=== PATIENT | male | born 1960 | race Caucasian/White ===

== ENCOUNTER 2019-09-30 16:35 | Observation (INO) | payer OTHER ==
[~2019-09-30] VITALS: Ht 177.8 cm; Wt 97.4 kg
[~2019-09-30 16:35] MED LIST: BACTRIM DS 8001 TAB PO; FLOMAX 0.40.4 MG/CAP PO; MICROZIDE12.5 MG PO; NO HOME MEDICATIONS; NORCO 325 MG-51 TAB PO; ULTRAM 50MG TAB50 MG PO; ZOFRAN ODT8 MG PO
[2019-09-30 17:07] LABS: ALANINE AMINOTRANSFERASE 25 U/L (4-49); ALBUMIN 4.4 gm/dL (3.5-5.0); ALKALINE PHOSPHATASE 70 U/L (50-136); ANION GAP 11 mmol/L (7-16); AST,SGOT 34 U/L (15-37); BILIRUBIN,TOTAL 1.9 mg/dL (0.0-1.0); BLOOD UREA NITROGEN 24 mg/dL (9-20); CALCIUM 9.9 mg/dL (8.4-10.2); CARBON DIOXIDE 25 mmol/L (22-30); CHLORIDE 102 mmol/L (98-107); CREATININE, serum 1.69 (0.66-1.25); GLUCOSE 122 mg/dL (74-106); SODIUM 137 mmol/L (137-145); TOTAL PROTEIN 7.9 gm/dL (6.4-8.2)
[2019-09-30 17:08] LABS: ALCOHOL(ethanol),MEDICAL < 10 mg/dL
[2019-09-30 17:23] LABS: PROLACTIN 36.9 ng/mL (3.7-17.9)
[2019-09-30 17:24] LABS: BASO # 0.1 (0.0-0.2); BASO % 0.7 % (0.0-2.0); EOS # 0.2 (0.0-0.7); EOS % 2.6 % (0-4.0); GRAN % 56.7 % (42.2-75.2); LYMPH # 2.5 (1.2-3.4); LYMPH % 28.7 % (20.0-51.0); MEAN CELL VOLUME 98 fl (80.0-100.0); MEAN CORPUSCULAR HGB CONC 34 g/dl (33.0-37.0); MEAN PLATELET VOLUME 9.7 fl (7.4-10.4); MONO # 0.9 (0.1-0.6); MONO % 10.2 % (1.7-9.3); PLATELET COUNT 292 K/mm3 (130-400); RED BLOOD COUNT 5.51 M/mm3 (4.20-5.60)
[2019-09-30 17:25] LABS: TROPONIN-I < 0.012 ng/mL (0.000-0.035)
[2019-09-30 17:29] LABS: HEMATOCRIT 53.7 % (42.0-52.0); HEMOGLOBIN 18.2 g/dl (13.5-18.0); MEAN CORPUSCULAR HEMOGLOBIN 33 pg (27.0-31.0)
[2019-09-30 17:38] LABS: PROTHROMBIN TIME 11.7 SECONDS (9.7-12.8)
[2019-09-30 19:29] LABS: COLLECTION METHOD CLEAN CATCH
[2019-09-30 19:43] LABS: MUCOUS Present /lpf; PH 5 (5-8); SQUAMOUS EPITHELIAL None Seen /hpf; URINE APPEARANCE Clear; URINE BACTERIA None Seen /hpf; URINE BILIRUBIN Negative (NEGATIVE); URINE BLOOD 1+ (NEGATIVE); URINE COLOR Yellow; URINE GLUCOSE Negative (NEGATIVE); URINE KETONE Negative (NEGATIVE); URINE LEUKOCYTE ESTERASE Negative (NEGATIVE); URINE NITRATE Negative (NEGATIVE); URINE PROTEIN(semi-quant) Negative (NEGATIVE); URINE UROBILINOGEN Negative (NEGATIVE)
[2019-09-30 21:47] VITALS: BP 144/80; PULSE 72; TEMP 98
--- NOTE | 2019-09-30 22:00 | NUR ---
Received patient via stretcher from ER. Patient is alert and oriented. With IV on left AC with NS at 125ml/hr. Denies pain. He is aware that he had a sudden confusion awhile ago but states he is back in his normal state now. Assesment and med rec done. Patient states he takes medicine for hypertension but cannot remember the name. This nurse asked him if his daughter can check it in the house and text him once she got it. He is ambulatory and independent. Lungs are clear. Call light within reach.
--- NOTE | 2019-09-30 23:25 | NUR ---
Informed patient about the medicines that I will give tonight including the Lovenox. Explained to him why it was ordered and why we are giving it. He refuses to have an injection in his tummy and thinks that he doesn't need the Lovenox. He states that he is ambulatory and he can walk in the hallway. He states, "It doesn't make sense. I'm only here overnight. I can walk and go up. Why would I need something for blood clots." Despite the explanation, this nurse told him that we'll inform the hospitalist about it. This nurse called airport operations duty manager hospitalist, Pippa, to inform her that the patient refuses the Lovenox and she said to just hold it for tonight and they will just discuss that in the morning. Informed patient about what the hospitalist said.
[2019-09-30] MEDS ORDERED: PRINIVIL5 MG PO (23:38)
[2019-10-01 00:36] VITALS: BP 141/65; PULSE 65; TEMP 98.4
[2019-10-01 05:06] VITALS: BP 128/64; PULSE 63; TEMP 98.3
[2019-10-01 07:07] LABS: BASO # 0.1 (0.0-0.2); BASO % 0.7 % (0.0-2.0); EOS # 0.2 (0.0-0.7); EOS % 3.1 % (0-4.0); GRAN # 4.6 (1.4-6.5); HEMATOCRIT 48.7 % (42.0-52.0); HEMOGLOBIN 16.4 g/dl (13.5-18.0); LYMPH # 1.6 (1.2-3.4); LYMPH % 22.4 % (20.0-51.0); MEAN CELL VOLUME 99 fl (80.0-100.0); MEAN CORPUSCULAR HEMOGLOBIN 33 pg (27.0-31.0); MEAN CORPUSCULAR HGB CONC 34 g/dl (33.0-37.0); MEAN PLATELET VOLUME 9.6 fl (7.4-10.4); MONO # 0.7 (0.1-0.6); MONO % 9.1 % (1.7-9.3); PLATELET COUNT 241 K/mm3 (130-400); RED BLOOD COUNT 4.94 M/mm3 (4.20-5.60); REDCELL DISTRIBUTION WIDTH-CV 13.2 % (11.5-14.5)
--- NOTE | 2019-10-01 07:24 | NUR ---
Lying in bed with eyes open. Patient voices frustration that he only got 20 minutes of sleep last night and he did not want to stay and wants to be discharged by this afternoon. Explained that we will be able to get more answers after he has his MRI today and the provider comes to see him. Patient denies pain. Neuro checks within normal limits. Patient declines needs at this time.
--- NOTE | 2019-10-01 07:25 | NUR ---
Endorsed patient to [facility]. Patient has been alert and oriented the whole shift. He denies pain. During shift change he verbalized that he was just grumpy since he wasn't able to sleep as people would go inside his room and check on him. Instructed patient to be NPO for his MRI today. He states that he wanna go home this afternoon.
[2019-10-01 07:30] VITALS: BP 143/72; PULSE 66; TEMP 98.1
[2019-10-01 07:32] LABS: CALCIUM 8.5 mg/dL (8.4-10.2); CREATININE, serum 1.43 (0.66-1.25); POTASSIUM 3.8 mmol/L (3.4-5.0)
--- NOTE | 2019-10-01 11:00 | NUR ---
Patient to MRI via wheel chair.
[2019-10-01 12:00] VITALS: BP 166/89; PULSE 68; TEMP 97.7
--- NOTE | 2019-10-01 12:06 | NUR ---
Patient back to room from MRI.
[2019-10-01] MEDS ORDERED: ASPIRIN 81M81 MG/TA2 PO (12:34)
[2019-10-01] MEDS ORDERED: PRINZIDE 12.5 M1 TA1 PO (12:47)
[2019-10-01] MEDS ORDERED: TRUVADA PO (12:47)
[2019-10-01] MEDS ORDERED: REVATIO20 MG PO (12:48)
[2019-10-01] MEDS ORDERED: DEPO-TESTOS200 MG/M1 IM (12:48)
--- NOTE | 2019-10-01 14:37 | NUR ---
FILIBERTO completed intake with patient on 10/01/2019. Patient currently resides in [place], [place] with daughter who is a minor. Patient states that he does not utilize any DME, nor does he need any assistance with ADL's. His PCP is Dr. Mcneill. Patient states he obtains his medication from [facility], and states that he can afford his medication, Patient states that he does not have a DPOA-HC and does not wish to appoint anyone at this time. Patient provides that he will be going back home up his discharge and does not have any questions or concerns in regards to his discharge at this time. Patient was packing up items to discharge during intake to go home. No addiontal needs.
--- NOTE | 2019-10-01 14:50 | NUR ---
Reviewed discharge instructions with the patient. Patient denies questions. Patient signs all discharge instructions. Patient leaves ambulatory with this nurse as hiw ride is here to pick him up. Denies additional needs.
== END 2019-10-01 14:50 | disposition home or self-care (01) ==
LOC: COL.ER 16:35 → SURG 18:26
PROVIDERS: Emergency Medicine; Nurse Practitioner Primary Care; ADMIT Internal Medicine
DX: G45.4 Transient global amnesia (principal); I10 Essential (primary) hypertension; E86.0 Dehydration
CPT/HCPCS: A9585; G0378; J7030

== ENCOUNTER 2021-05-19 04:22 | Emergency (ER) | payer SELFPAY ==
[~2021-05-19 04:22] MED LIST changes: +ASPIRIN 81M81 MG/TA2 PO; +DEPO-TESTOS200 MG/M1 IM; +PRINIVIL5 MG PO; +PRINZIDE 12.5 M1 TA1 PO; +REVATIO20 MG PO; +TRUVADA PO
[2021-05-19 04:48] VITALS: TEMP 97.8
[2021-05-19 06:37] LABS: COLLECTION METHOD CLEAN CATCH
[2021-05-19] MEDS ORDERED: NORCO 325 MG-51 TAB PO (06:39)
[2021-05-19] MEDS ORDERED: LEVAQUIN 5500 MG/TA1 PO (06:44)
[2021-05-19 06:45] LABS: MUCOUS Present (NOT PRESENT); PH 5 (5-8); SQUAMOUS EPITHELIAL 0-2 /hpf (0-10); URINE APPEARANCE Clear (CLEAR/HAZY); URINE BACTERIA None Seen /hpf (NONE SEEN); URINE BILIRUBIN Negative (NEGATIVE); URINE BLOOD Negative (NEGATIVE); URINE COLOR Yellow (YELLOW); URINE GLUCOSE Negative (NEGATIVE); URINE KETONE Negative (NEGATIVE); URINE LEUKOCYTE ESTERASE Negative (NEGATIVE); URINE NITRATE Negative (NEGATIVE); URINE PROTEIN(semi-quant) Negative (NEGATIVE); URINE RBC 0-2 /hpf (0-2); URINE UROBILINOGEN Negative (NEGATIVE)
[2021-05-19 07:02] VITALS: BP 155/94; PULSE 80
[2021-05-20] MEDS ORDERED: DOXYCYCLINE 10100 MG PO (16:36)
[2021-05-20] MEDS ORDERED: MOBIC15 MG PO (16:36)
== END 2021-05-19 07:09 | disposition home or self-care (01) ==
LOC: COL.ER 04:22
PROVIDERS: Emergency Medicine
DX: N50.812 Left testicular pain (principal); Z79.1 Long term (current) use of non-steroidal anti-inflammatories (NSAID)
CPT/HCPCS: J0696; J1170; J7030

== ENCOUNTER 2021-05-20 13:44 | Emergency (ER) | payer SELFPAY ==
[~2021-05-20] VITALS: Ht 177.8 cm; Wt 92.7 kg
[~2021-05-20 13:44] MED LIST changes: +LEVAQUIN 5500 MG/TA1 PO
[2021-05-20 14:07] VITALS: TEMP 98
[2021-05-20 15:01] LABS: BASO # 0.1 K/mm3 (0.0-0.2); BASO % 0.4 % (0.0-2.0); EOS # 0.3 K/mm3 (0.0-0.7); EOS % 2.3 % (0.0-4.0); GRAN % 69.3 % (42.2-75.2); HEMATOCRIT 46.2 % (42.0-52.0); HEMOGLOBIN 16.1 g/dl (13.5-18.0); LYMPH # 2.1 K/mm3 (1.2-3.4); LYMPH % 17.8 % (20.0-51.0); MEAN CELL VOLUME 96 fl (80.0-100.0); MEAN CORPUSCULAR HEMOGLOBIN 34 pg (27-31); MEAN CORPUSCULAR HGB CONC 35 g/dl (33.0-37.0); MEAN PLATELET VOLUME 9.1 fl (7.4-10.4); MONO # 1.1 K/mm3 (0.1-0.6); MONO % 9.3 % (1.7-9.3); PLATELET COUNT 265 K/mm3 (130-400); REDCELL DISTRIBUTION WIDTH-CV 14.3 % (11.5-14.5)
[2021-05-20 15:08] LABS: COLLECTION METHOD CLEAN CATCH
[2021-05-20 15:14] LABS: ALBUMIN 3.4 gm/dL (3.4-4.8); BILIRUBIN,TOTAL 1.9 mg/dL (0.2-1.2); CREATININE, serum 1.47 mg/dL (0.72-1.25); POTASSIUM 4.2 mmol/L (3.5-4.5); TOTAL PROTEIN 7.4 gm/dL (6.2-8.1)
[2021-05-20 15:14] LABS: MUCOUS Present (NOT PRESENT); PH 5 (5-8); SQUAMOUS EPITHELIAL None Seen /hpf (0-10); URINE APPEARANCE Clear (CLEAR/HAZY); URINE BACTERIA None Seen /hpf (NONE SEEN); URINE BILIRUBIN Negative (NEGATIVE); URINE BLOOD 1+ (NEGATIVE); URINE COLOR Yellow (YELLOW); URINE GLUCOSE Negative (NEGATIVE); URINE KETONE Negative (NEGATIVE); URINE LEUKOCYTE ESTERASE Negative (NEGATIVE); URINE NITRATE Negative (NEGATIVE); URINE PROTEIN(semi-quant) Negative (NEGATIVE); URINE UROBILINOGEN Negative (NEGATIVE)
[2021-05-20] MEDS ORDERED: DOXYCYCLINE 10100 MG PO (16:36)
[2021-05-20] MEDS ORDERED: MOBIC15 MG PO (16:36)
[2021-05-20 16:58] VITALS: BP 147/93; PULSE 81
== END 2021-05-20 16:59 | disposition home or self-care (01) ==
LOC: COL.ER 13:44
PROVIDERS: Physician Assistant
DX: N45.3 Epididymo-orchitis (principal); N43.3 Hydrocele, unspecified; I86.1 Scrotal varices
CPT/HCPCS: Q9967

== ENCOUNTER 2023-04-16 15:57 | Emergency (ER) | payer SELFPAY ==
[~2023-04-16] VITALS: Ht 177.8 cm; Wt 97.7 kg
[~2023-04-16 15:57] MED LIST changes: +DOXYCYCLINE 10100 MG PO; +MOBIC15 MG PO
[2023-04-16 16:01] VITALS: TEMP 98.3
[2023-04-16] MEDS ORDERED: ROXICODONE 55 MG/TAB PO (16:10)
[2023-04-16 16:19] LABS: BASO # 0.1 K/mm3 (0.0-0.2); BASO % 0.9 % (0.0-2.0); EOS # 0.2 K/mm3 (0.0-0.7); EOS % 3.1 % (0.0-4.0); GRAN # 5.1 K/mm3 (1.4-6.5); GRAN % 66.3 % (42.2-75.2); HEMATOCRIT 45.3 % (42.0-52.0); HEMOGLOBIN 15.6 g/dl (13.5-18.0); LYMPH # 1.5 K/mm3 (1.2-3.4); LYMPH % 19.9 % (20.0-51.0); MEAN CELL VOLUME 97 fl (80.0-100.0); MEAN CORPUSCULAR HEMOGLOBIN 33 pg (27-31); MEAN CORPUSCULAR HGB CONC 34 g/dl (33.0-37.0); MEAN PLATELET VOLUME 9.5 fl (7.4-10.4); MONO # 0.7 K/mm3 (0.1-0.6); PLATELET COUNT 300 K/mm3 (130-400); RED BLOOD COUNT 4.69 M/mm3 (4.20-5.60); REDCELL DISTRIBUTION WIDTH-CV 12.9 % (11.5-14.5)
[2023-04-16 16:26] LABS: INR 1.2 (0.8-3.0); PROTHROMBIN TIME 12.8 SECONDS (9.7-12.8)
[2023-04-16 16:54] LABS: ALBUMIN 3.4 gm/dL (3.4-4.8); BILIRUBIN,TOTAL 0.9 mg/dL (0.2-1.2); CREATININE, serum 1.64 mg/dL (0.72-1.25); POTASSIUM 3.9 mmol/L (3.5-4.5)
[2023-04-16 16:59] LABS: TROPONIN-I 0.012 ng/mL (0.00-0.033)
[2023-04-16] MEDS ORDERED: NS 100 ML IV SCH (17:12)
[2023-04-16] MEDS ORDERED: Iohexol 300 - 100 ML VIAL IV ONE (17:14)
[2023-04-16] MEDS ORDERED: NS 1,000 ML IV ONE (17:15)
[2023-04-16 18:22] VITALS: BP 150/90; PULSE 77
[2023-04-18] MEDS ORDERED: PROAIR HFA0.09 MG/AC IH (08:29)
== END 2023-04-16 18:32 | disposition home or self-care (01) ==
LOC: COL.ER 15:57
PROVIDERS: Emergency Medicine
DX: C80.1 Malignant (primary) neoplasm, unspecified (principal); C78.7 Secondary malignant neoplasm of liver and intrahepatic bile duct; R74.01 Elevation of levels of liver transaminase levels
CPT/HCPCS: J7030; Q9967

== ENCOUNTER → 2023-04-18 | Outpatient (CLI) | payer OTHER ==
[2023-04-18] VITALS (15 sets, daily range): BP systolic 144–182; BP diastolic 79–128; PULSE 64–83; TEMP 97.7
[~2023-04-18] VITALS: Ht 177.8 cm; Wt 99.1 kg
[~2023-04-18] MED LIST changes: +Midazolam 2 MG/2 ML VIAL IV SCH; +PROAIR HFA0.09 MG/AC IH; +PROTONIX20 MG PO; +ROXICODONE 55 MG/TAB PO; +fentaNYL 50 MCG/ML 2 ML VIAL IV SCH
--- NOTE | 2023-04-18 08:55 | NUR ---
Pt to ultrasound per wheelchair. Pt up and onto table in supine position. Monitors applied.
--- NOTE | 2023-04-18 09:08 | NUR ---
Dr Arreola into room and talks with pt.
--- NOTE | 2023-04-18 09:13 | NUR ---
Specimens obtained and placed in formalin by Dr Arreola. Specimen labeled.
--- NOTE | 2023-04-18 09:50 | NUR ---
Dr Arreola informed of pain. Orders received. See MAR.
--- NOTE | 2023-04-18 10:10 | NUR ---
Dr Arreola into talk with pt. Pt reports pain continues to be high. Orders received.
--- NOTE | 2023-04-18 10:54 | NUR ---
Informed pt that Dr Arreola states he has nothing to report to Dr Alvarado. States that pt can inform him that the procedure went well. Pain medication given. See MAR
--- NOTE | 2023-04-18 11:10 | NUR ---
Pt given muffin and juice to eat. Pt talking on phone continuously.
--- NOTE | 2023-04-18 11:45 | NUR ---
Talked with Dr Arreola regarding pts continued pain. Ordered [place] 5/325 x2 tabs to be given.
--- NOTE | 2023-04-18 12:05 | NUR ---
Pt dressed and moving slowly. Pain continues at 5/10. Pt out to car per wheelchair. Pt up and into car with standby assistance.
== END ==
LOC: COL.RAD 07:37
DX: C78.7 Secondary malignant neoplasm of liver and intrahepatic bile duct (principal); C80.1 Malignant (primary) neoplasm, unspecified
CPT/HCPCS: J2250; J3010

== ENCOUNTER 2023-05-01 08:24 | Day surgery (SDC) | payer OTHER ==
[~2023-05-01] VITALS: Ht 177.8 cm; Wt 95.0 kg
[~2023-05-01 08:24] MED LIST changes: +LR 1,000 ML IV SCH; -Midazolam 2 MG/2 ML VIAL IV SCH; -PROTONIX20 MG PO; -fentaNYL 50 MCG/ML 2 ML VIAL IV SCH
[2023-05-01] MEDS ORDERED: PROTONIX20 MG PO (09:04)
[2023-05-01 09:44] VITALS: BP 154/85; PULSE 104; TEMP 98.2
[2023-05-01] MEDS ORDERED: Topical Skin Adhesive 1 EACH (1 ML) TOP ONE (10:30)
[2023-05-01] MEDS ORDERED: Ondansetron 4 MG/2 ML VIAL IV PRN ×2 (11:15→12:15)
[2023-05-01 12:00] VITALS: BP 159/94; PULSE 76; TEMP 98
[2023-05-01] MEDS ORDERED: ULTRAM 50MG TAB50 MG PO (12:02)
[2023-05-01] MEDS ORDERED: Glycopyrrolate 0.2 MG/ML 1 ML VIAL ONE (12:14)
[2023-05-01] MEDS ORDERED: Ondansetron 4 MG/2 ML VIAL ONE (12:14)
[2023-05-01 12:15] VITALS: BP 148/94; PULSE 74
[2023-05-01] MEDS ORDERED: traMADol 50 MG TAB PO PRN (12:15)
[2023-05-01] MEDS ORDERED: Ibuprofen 600 MG TAB PO PRN (12:15)
[2023-05-01] MEDS ORDERED: Acetaminophen 325 MG TAB PO PRN (12:15)
[2023-05-01 12:30] VITALS: BP 143/97; PULSE 72
[2023-05-01 12:45] VITALS: BP 148/95; PULSE 74
--- NOTE | 2023-05-01 13:32 | NUR ---
1200: PT TO RECOVERY BAY 2 FROM OR S/P R PORTACATH PLACEMENT, EGD/COLONOSCOPY SLEEPY, PLACED ON MONITOR, VSS ON 6L OXYMASK RECEIVED REPORT AND ASSUMED CARE OF PT FROM LI AND ANTHONY FAMILY/FRIENDS AT BEDSIDE INITIALLY SLOW TO WAKE UP, SLOW TO TITRATE OFF O2, BUT ULTIMATELY RECOVERED FINE 1215 MILD NAUSEA PROGRESSING TO BRIEF DRY HEAVING, 4MG ZOFAN IVP GIVEN, NAUSEA RELIEVED WITHIN 10MIN PROVIDED FOOD/FLUIDS, TOLERATING WELL PT A&O, NAD, VSS ON RA, TOLERATING PO, VOIDED, IS WITHOUT SIGNIFICANT COMPLAINT, WITH STEADY GAIT BY END OF STAY IV D/C'D. D/C INSTRUCTIONS, FOLLOW UP REVIEWED AND HANDED TO PT ALONG WITH ENDO PICS AND PORTACATH PT PACKET. ALL QUESTIONS AND CONCERNS ADDRESSED TO PT SATISFACTION. TAKEN TO EXIT VIA W/C WITH ALL BELONGINGS AND PAPERWORK IN HAND, ASSISTED INTO PASSENGER SEAT OF POV. FRIEND TO DRIVE HOME.
== END 2023-05-01 13:20 | disposition home or self-care (01) ==
LOC: SDCO 08:24
DX: C78.7 Secondary malignant neoplasm of liver and intrahepatic bile duct (principal); C80.1 Malignant (primary) neoplasm, unspecified; K57.30 Diverticulosis of large intestine without perforation or abscess without bleeding; K86.89 Other specified diseases of pancreas
CPT/HCPCS: C1788; J1644; J2405; J2704; J7120